=== PATIENT | female | born 1990 | race Caucasian/White ===

== ENCOUNTER 2020-03-08 17:11 | Emergency (ER) | payer OTHER ==
[~2020-03-08] VITALS: Ht 160 cm; Wt 86.6 kg
[2020-03-08 17:31] VITALS: Ht 160 cm; Wt 86.6 kg
[2020-03-08 19:05] VITALS: BP 139/81
== END 2020-03-08 19:05 | disposition home or self-care (01) ==
LOC: ED 17:11
DX: S00.33XA Contusion of nose, initial encounter (principal); J45.909 Unspecified asthma, uncomplicated; Y04.0XXA Assault by unarmed brawl or fight, initial encounter; Y93.89 Activity, other specified; Y92.89 Other specified places as the place of occurrence of the external cause; Y99.8 Other external cause status
CPT/HCPCS: Q0092